=== PATIENT | female | born 1960 | race Caucasian/White ===

== ENCOUNTER 2019-09-17 18:13 | Inpatient (IN) | payer OTHER ==
[~2019-09-17] VITALS: Ht 170.2 cm; Wt 70.0 kg
[2019-09-17 20:59] LABS: BASOPHIL % 0.1 % (0-2); PLATELET COUNT 225 x10^3mcL (130-400); RED CELL DISTRIBUTION WIDTH 14.3 % (11.5-14.5)
[2019-09-17 21:30] LABS: microscopic required? YES; urine erythrocyte 3+ (NEGATIVE)
[2019-09-17] MEDS ORDERED: SEROQUEL50 M1 (21:35)
[2019-09-17 21:40] LABS: ALBUMIN 3.3 g/dL (3.4-5.0); BILIRUBIN TOTAL 0.5 mg/dL (0.20-1.00); CALCIUM 8.9 mg/dL (8.5-10.1); CARBON DIOXIDE 23.3 mmol/L (21-32); CHLORIDE SERUM 104 mmol/L (98-107); CREATININE SERUM 0.9 mg/dL (0.6-1.0); GFR1 > 60 mL/min; GLUCOSE SERUM 142 mg/dL (74-106); POTASSIUM SERUM 3.8 mmol/L (3.5-5.1); SODIUM SERUM 138 mmol/L (136-145); TOTAL PROTEIN, SERUM 7.2 g/dL (6.4-8.2)
[2019-09-17 21:41] LABS: ALKALINE PHOSPHATASE 80 U/L (46-116); ALT/SGPT 25 U/L (14-59); AST/SGOT 20 U/L (15-37); LIPASE 100 IU/L (73-393)
[2019-09-17 22:49] VITALS: BP 112/63
[2019-09-17 22:51] VITALS: Ht 170.2 cm; Wt 70.0 kg
[2019-09-17 23:26] LABS: CHOLESTEROL/HDL RATIO 2.8; PHOSPHOROUS 3.1 mg/dL (2.5-4.9)
[2019-09-18 06:22] VITALS: BP 107/62
[2019-09-18 06:56] LABS: BASOPHIL % 0.4 % (0-2); PLATELET COUNT 195 x10^3mcL (130-400); RED CELL DISTRIBUTION WIDTH 14.5 % (11.5-14.5)
[2019-09-18 07:13] LABS: CHLORIDE SERUM 111 mmol/L (98-107); CREATININE SERUM 0.8 mg/dL (0.6-1.0); GFR1 > 60 mL/min; GLUCOSE SERUM 88 mg/dL (74-106); POTASSIUM SERUM 3.6 mmol/L (3.5-5.1); SODIUM SERUM 143 mmol/L (136-145)
[2019-09-18 09:13] VITALS: BP 108/55
[2019-09-18 12:06] VITALS: BP 108/55
[2019-09-18] MEDS ORDERED: LEVAQUIN500 M1 PO (12:23)
[2019-09-18] MEDS ORDERED: LAC PO (12:23)
[2019-09-18] MEDS ORDERED: FLO4 PO (12:23)
[2019-09-18 12:27] VITALS: BP 119/66
== END 2019-09-18 13:04 | disposition home or self-care (01) | DRG 463 ==
LOC: ED 18:13 → MU 21:42
PROVIDERS: Emergency Medicine; ADMIT Internal Medicine
DX: N13.6 Pyonephrosis (principal); N17.0 Acute kidney failure with tubular necrosis; E44.1 Mild protein-calorie malnutrition; F31.9 Bipolar disorder, unspecified; Z60.2 Problems related to living alone; Z68.24 Body mass index [BMI] 24.0-24.9, adult; Z79.899 Other long term (current) drug therapy
CPT/HCPCS: G0378; J0696; J1885; J2270; J2405; J7030; J7060